=== PATIENT | male | born 1960 | race Caucasian/White ===

== ENCOUNTER → 2017-08-25 | Outpatient (CLI) | payer OTHER | LOC: BMCIMAGING 15:21 | PROVIDERS: ATTEND Family Medicine | DX: R05 Cough (principal); M79.1 Myalgia; R50.9 Fever, unspecified; R91.8 Other nonspecific abnormal finding of lung field ==

== ENCOUNTER 2017-08-27 15:22 | Observation (INO) | payer OTHER ==
[2017-08-27] MEDS ORDERED: NS 1,000 ML IV ONE ×2 (15:52→17:50)
--- NOTE | 2017-08-27 15:57 | EDPHY ---
HPI/HX/ROS/PE/MDM Narrative: CHIEF COMPLAINT: Pneumonia HPI: This patient is a 57 year old male with history of hypertension and recent diagnosis of lingular pneumonia. He presents as he has had considerable gastrointestinal upset since beginning antibiotic treatment and does not feel as though his symptoms are improving. On Saturday, the patient had a routine appointment with his PCP and was noted to be febrile. He has felt poorly since then and developed a cough on Saturday. He has been taking ibuprofen for relief of chills and fever and has felt fatigued. He visited an urgent care on Saturday and had a negative flu, but CXR was positive for pneumonia so he received a dose of IM ceftriaxone and has been taking amoxicillin. The patient has had recurrent vomiting and diarrhea since Saturday night after beginning antibiotics. Overall, he still feels poorly and states his cough has worsened. He endorses a "big blood clot" with coughing. He denies any blood in his emesis or stool. No melena. No dysuria or hematuria. REVIEW OF SYSTEMS: Aside from elements discussed in the HPI, a comprehensive 10-point review of systems was reviewed and is negative. PMH: Hypertension. Environmental allergies. History of asthma in childhood. SOCIAL HISTORY: . Family at bedside. Employed. PHYSICAL EXAM: General:Patient is alert, in no acute distress. ENT:Eyes are normal to inspection. ENT inspection normal. Neck: Normal inspection. Full range of motion. Respiratory:No respiratory distress. Breath sounds normal bilaterally. Cardiovascular: Regular rate and rhythm. Strong peripheral pulses. Normal cap refill. Abdomen:The abdomen is nontender to palpation. There are no peritoneal signs. There are normal bowel sounds. Back: Normal to inspection. No tenderness to palpation. Skin: Normal color. No rash. Warm and dry. Extremities: Normal appearance. Full range of motion. Neuro: Oriented x3. Normal motor function. Normal sensory function. ED Course: 57 y/o male with recent diagnosis of lingular pneumonia presents with vomiting and diarrhea after taking antibiotics. He is afebrile here in the emergency department at this time. I reviewed his chest x-ray results from 08/25/17. Patchy lingular infiltrate suspicious for pneumonia present at that time. Plan for repeat CXR. Plan for labs including troponin, coag panel, lactic acid, blood cultures. IV established. Plan to administer 1L IV NS. 16:20 Reviewed CXR. Persistent but stable peribronchial infiltrates. Radiologist report concurs. Reviewed laboratory reports. Lactic acid within normal limits. Troponin pending at this time. Plan for additional labs including CBC, chemistries. D-dimer elevated at 2.3. Plan for CTA chest to r/o PE or other acute processes given patient's history of hemoptysis and inconclusive x-ray. 18:[address] Paul, radiologist. CT chest shows patchy scattered pneumonia. Negative for PE. 19:17 Reassessed patient. He is hypoxic on room air. Plan to admit. 19:27 Spoke with hospitalist service. Dr. Arrieta accepts admission for pneumonia. MDM: This patient presents with fevers and a possible diagnosis of lingular infiltrate on CXR, currently treated with Augmentin. He does not endorse significant respiratory symptoms, and he describes hemoptysis that seems out of proportion to the possible pneumonia seen on CXR, which prompted a d-dimer and subsequent CTA. This revealed significant multi-lobar PNA that does not appear to be responding to Augmentin, which seems a sub-optimal choice for coverage. Given his hypoxia on RA, I think he requires admission for observation and IV antibiotics. - Data Points Imaging Results: Imaging Impressions Chest X-Ray 08/27/17 15:52 Impression: Persistent, but stable peribronchial infiltrates. Chest/Thorax CTA 08/27/17 17:59 Impression: Pneumonia. No evidence for pulmonary embolic disease. Results called and discussed with Vinh Inman MD, at 08/27/2017 18:55 General information for patients regarding this examination can be found at [email or web address]. If you have questions or comments about this report, please contact me at (hospital) or [phone] (cell). Imaging: Discussed imaging studies w/ operations recruiter Radiologist, I viewed and interpreted images myself Laboratory Results: Laboratory Results 08/27/17 16:02 08/27/17 16:02 08/27/17 08/27/17 08/27/17 16:02 16:02 16:02 WBC 10.15 10^3/uL H 10^3/uL (3.80-9.50) RBC 5.22 10^6/uL 10^6/uL (4.40-6.38) Hgb 16.9 g/dL g/dL (13.7-17.5) Hct 48.7 % % (40.0-51.0) MCV 93.3 fL fL (81.5-99.8) MCH 32.4 pg pg (27.9-34.1) MCHC 34.7 g/dL g/dL (32.4-36.7) RDW 13.3 % % (11.5-15.2) Plt Count 174 10^3/uL 10^3/uL (150-400) MPV 10.0 fL fL (8.7-11.7) Neut % (Auto) 75.0 % H % (39.3-74.2) Lymph % (Auto) 7.9 % L % (15.0-45.0) [place] % (Auto) 14.2 % H % (4.5-13.0) Eos % (Auto) 1.7 % % (0.6-7.6) Baso % (Auto) 0.6 % % (0.3-1.7) Nucleat RBC Rel Count 0.0 % % (0.0-0.2) Absolute Neuts (auto) 7.62 10^3/uL H 10^3/uL (1.70-6.50) Absolute Lymphs (auto) 0.80 10^3/uL L 10^3/uL (1.00-3.00) Absolute Monos (auto) 1.44 10^3/uL H 10^3/uL (0.30-0.80) Absolute Eos (auto) 0.17 10^3/uL 10^3/uL (0.03-0.40) Absolute Basos (auto) 0.06 10^3/uL 10^3/uL (0.02-0.10) Absolute Nucleated RBC 0.00 10^3/uL 10^3/uL (0-0.01) Immature Gran % 0.6 % % (0.0-1.1) Immature Gran # 0.06 10^3/uL 10^3/uL (0.00-0.10) PT INR D-Dimer 2.30 ug/mLFEU H ug/mLFEU (0.00-0.50) VBG Lactic Acid Sodium 138 mEq/L mEq/L (135-145) Potassium 3.8 mEq/L mEq/L (3.3-5.0) Chloride 103 mEq/L mEq/L (97-110) Carbon Dioxide 24 mEq/l mEq/l (22-31) Anion Gap 11 mEq/L mEq/L (8-16) BUN 17 mg/dL mg/dL (7-23) Creatinine 1.2 mg/dL mg/dL (0.7-1.3) Estimated GFR > 60 Glucose 98 mg/dL mg/dL (70-100) Calcium 8.6 mg/dL mg/dL (8.5-10.4) Troponin I 08/27/17 08/27/17 08/27/17 16:02 16:02 16:02 WBC RBC Hgb Hct MCV MCH MCHC RDW Plt Count MPV Neut % (Auto) Lymph % (Auto) [place] % (Auto) Eos % (Auto) Baso % (Auto) Nucleat RBC Rel Count Absolute Neuts (auto) Absolute Lymphs (auto) Absolute Monos (auto) Absolute Eos (auto) Absolute Basos (auto) Absolute Nucleated RBC Immature Gran % Immature Gran # PT 15.3 SEC H SEC (12.0-15.0) INR 1.19 H (0.83-1.16) D-Dimer VBG Lactic Acid 0.9 mmol/L mmol/L (0.7-2.1) Sodium Potassium Chloride Carbon Dioxide Anion Gap BUN Creatinine Estimated GFR Glucose Calcium Troponin I < 0.012 ng/mL ng/mL (0.000-0.034) Medications Given: Discontinued Medications Sodium Chloride (Ns) 1,000 mls @ 0 mls/hr IV ONCE ONE; Wide Open PRN Reason: Protocol Stop: 08/27/17 15:53 Last Admin: 08/27/17 16:03 Dose: 1,000 mls Sodium Chloride (Ns) 1,000 mls @ 0 mls/hr IV ONCE ONE PRN Reason: Wide Open Stop: 08/27/17 17:51 Last Admin: 08/27/17 18:13 Dose: 1,000 mls General Time Seen by Provider: 08/27/17 15:31 Initial Vital Signs: Initial Vital Signs Temperature (C) 37.3 C 08/27/17 15:23 Heart Rate 84 08/27/17 15:23 Respiratory Rate 20 08/27/17 15:23 Blood Pressure 129/93 H 08/27/17 15:23 O2 Sat (%) 92 08/27/17 15:23 O2 Delivery Mode Nasal Cannula O2 (L/minute) 3 Allergies/Adverse Reactions: aspirin Allergy (Verified 08/27/17 21:39) Other-Enter Comments Home Medications: Medication Instructions Recorded Amoxicillin/Clavulanate Pot 875 mg PO BID 08/27/17 [Augmentin 875 MG TAB (*)] Escitalopram Oxalate [Lexapro] 20 mg PO DAILY 08/27/17 Losartan Potassium [Cozaar 50 mg 50 mg PO DAILY 08/27/17 (*)] buPROPion SR [Wellbutrin 100mg SR 100 mg PO DAILY 08/27/17 (*)] Departure - Departure Disposition: [facility] Inpatient Acute Clinical Impression: Pneumonia Qualifiers: Pneumonia type: due to unspecified organism Laterality: bilateral Lung location : unspecified part of lung Qualified Code(s): J18.9 - Pneumonia, unspecified organism Condition: Fair Report Scribed for: Vinh Inman Report Scribed by: Hue Grande Date of Report: 08/27/17 Time of Report: 15:57 Physician Review and Approval Statement: Portions of this note were transcribed by an ED scribe. I personally performed the history, physical exam, and medical decision making; and confirm the accuracy of the information in the transcribed note.
[2017-08-27 16:23] LABS: INR 1.19 (0.83-1.16); PROTIME(PATIENT) 15.3 SEC (12.0-15.0)
[2017-08-27 17:01] LABS: PLATELET COUNT 174 10^3/uL (150-400)
[2017-08-27] MEDS ORDERED: IOPAMIDOL (ISOVUE 370) 100 ML BTL IV ONE (18:09)
[2017-08-27] MEDS ORDERED: IBUPROFEN 600 MG TAB PO ONE (21:30)
[2017-08-27] MEDS ORDERED: CALCIUM CARBONATE 500 MG CHEWABLE TAB PO PRN (21:58)
[2017-08-27] MEDS ORDERED: ONDANSETRON 4 MG/2 ML VIAL IVP PRN (22:00)
[2017-08-27] MEDS ORDERED: ZOLPIDEM TARTRATE 5 MG TAB PO PRN (22:01)
--- NOTE | 2017-08-27 22:18 | GHP ---
[f rep st] HISTORY AND PHYSICAL DATE OF ADMISSION: 08/27/2017 CHIEF COMPLAINT: Pneumonia. HISTORY OF PRESENT ILLNESS: This is a 57-year-old male who was diagnosed with pneumonia on Saturday at an urgent care. At that time, he was given a dose of Rocephin and started on Augmentin. Patient first became ill on Saturday with a cough and fevers. Since starting Augmentin on Saturday he de veloped some nausea and vomiting as well as diarrhea. The vomiting has since resolved, but he contin ues to have diarrhea. He also continues to have fever and nonproductive cough. Given that he has not been getting better, he called his doctor today who referred him to the emergen cy department for further evaluation given his persistent symptoms. The patient does have a history of hypertension and has not been taking his blood pressure meds for the past few days since he just d oes not want to take any more medications. PAST MEDICAL HISTORY: Hypertension, recently diagnosed pneumonia as mentioned in the HPI. PAST SURGICAL HISTORY: Eye surgery, spine surgery. HOME MEDICATIONS: Reviewed. Refer to [employer] for details. ALLERGIES: Aspirin; also Tylenol causes him to throw up. SOCIAL HISTORY: He lives in [place]. He is a former smoker. He denies any alcohol or illicit maldonado g use. FAMILY HISTORY: Reviewed and noncontributory. REVIEW OF SYSTEMS: Comprehensive 10-point review of systems was done and is negative, except for as mentioned in the HPI. PHYSICAL EXAM: VITAL SIGNS: Blood pressure 152/96, pulse of 75, respiratory rate 18, O2 saturation 92% on 2 L, temperature 38.7. GENERAL: No acute distress. HEAD: Normocephalic, atraumatic. EYES: PERRLA. Sclerae anicteric. MOUTH: Moist mucous membranes. NECK: Supple. No lymphadenopathy. CARDIOVASCULAR: S1, S2. No JVD. No lower extremity edema. PULMONARY: Diminished breath sounds in bilateral bases. No respiratory distress. ABDOMEN: Soft, nontender, nondistended. No guarding or rebound tenderness. Normoactive bowel sounds. EXTREMITIES: No clubbing or cyanosis. NEURO: Cran ial nerves 2-12 grossly intact. No focal motor or sensory deficits. SKIN: Clear. No rashes. DIAGNOSTICS: CTA of the chest, which I reviewed, was negative for PE, showed a left upper lobe and p osterior right upper lobe and patchy lower lobe infiltrates consistent with pneumonia. There is no P E. WBCs 10, hemoglobin 16.9, hematocrit 48.7, platelets 174. Venous lactic acid was 0.9, sodium 138 , potassium 3.8, chloride 103, BUN 17, creatinine 1.2, glucose 98. Troponin was negative. ASSESSMENT AND PLAN: This is a 57-year-old male presenting with: 1. Community-acquired pneumonia, initially diagnosed on Saturday, with persistent fever, diarrhea, and malaise. Plan: I suspect that the patient's GI symptoms are from the Augmentin which has been discontinued. He received a dose of IV levofloxacin in the emergency department, which will be continued for now. We will treat his symptoms supportively with ibuprofen since he does not tolerate Tylenol. We will a lso offer a cough suppressant as needed. We will send a viral respiratory pathogen panel by PCR. 1. History of hypertension, currently off the medications. 2. Plan: Resume home meds. Monitor blood pressure. /[id number]/MODL
[2017-08-28] MEDS: IBUPROFEN 600 MG TAB PO PRN ×2 (05:18→11:25)
[2017-08-28] MEDS ORDERED: BENZONATATE 100 MG CAP PO PRN (05:41)
[2017-08-28] MEDS ORDERED: ESCITALOPRAM OXALATE 10 MG TAB PO SCH (09:00)
[2017-08-28] MEDS ORDERED: guaiFENesin 600 MG TAB.ER PO SCH (09:00)
[2017-08-28] MEDS ORDERED: NON-FORMULARY NEW DRUG (Escitalopram Oxalate [Lexapro] 20 MG) PO SCH (09:00)
[2017-08-28] MEDS ORDERED: LOSARTAN POTASSIUM 50 MG TAB PO SCH (09:00)
[2017-08-28] MEDS ORDERED: buPROPion SR 100 MG TAB PO SCH (09:00)
--- NOTE | 2017-08-28 10:17 | ASMTCASEMG ---
Living Arrangements What is your living Answers: With Spouse arrangement? Who do you live with? Type Of Residence What kind of residence do Answers: House you live in? Discharge Plan Comments Coordination Status Comments Notes: Pt is a 57 y/o man admitted for pneumonia. Pt will most likely d/c home independent when medically stable. No therapies ordered at this time. CM available for changes. Plan: Independent Date Signed: 08/28/2017 10:17 AM Electronically Signed By:NUBIA Delgado
[2017-08-28 11:23] VITALS: BP 139/102
--- NOTE | 2017-08-28 18:02 | GDS ---
[f rep st] DISCHARGE SUMMARY DISCHARGE DIAGNOSES: Include: 1. Community-acquired pneumonia. 2. Diarrhea, thought related to antibiotics. 3. Acute leukocytosis, secondary to pneumonia. 4. Fever, secondary to pneumonia. HISTORY OF PRESENT ILLNESS: A 57-year-old male with history of hypertension who presents with persis tent symptoms of fevers, chills, cough, and shortness of breath. For details of the patient's initia l presentation, please see the history and physical dated 08/27/2017. CONSULTATIVE SERVICES: None. PROCEDURES: On 08/27/2017, patient underwent CT-A of the chest, which was negative for pulmonary emb olism. Patient was noted to have consolidations in the left upper lobe, right upper lobe, and patchy bilateral lower lobes. HOSPITAL COURSE: 1. Community-acquired pneumonia. [facility] have [facility], was evaluated in the outpatient setting, and initiated on Augmentin therapy. He did not tolerate this therapy well with nausea, vomiting, and diarrhea. Patient re-presented when his fevers and sym ptoms persisted. Patient was treated in the emergency department with IV levofloxacin. This was con tinued on the medical floor. Patient's fever defervesced overnight. He was feeling markedly improve d the morning after presentation and requesting returning home. We are sending him with oral levoflo xacin to complete a full 7-day course. Have asked that he follow in the outpatient setting with his PCP Dr. Schneider at the completion of his antibiotics for followup of resolution of symptoms. 2. Hypertension. He was continued on his home medications without change. MEDICATIONS AT THE TIME OF DISPOSITION: Please reference to the medication reconciliation printed on 08/28/2017. FOLLOWUP APPOINTMENTS: Include with Dr. Schneider in the next 1-2 weeks for post-disposition followup . PENDING STUDIES: At the time of this dictation, include blood cultures, which are preliminary no trina wth to date at the time of disposition. I spent greater than 30 minutes in the planning and coordination of this discharge. /[id number]/MODL
== END 2017-08-28 15:46 | disposition home or self-care (01) ==
LOC: F3E 20:23
PROVIDERS: ADMIT Family Medicine; ATTEND Hospitalist
DX: J18.9 Pneumonia, unspecified organism (principal); R19.7 Diarrhea, unspecified; E86.9 Volume depletion, unspecified; I10 Essential (primary) hypertension; Z87.891 Personal history of nicotine dependence; Z88.6 Allergy status to analgesic agent
CPT/HCPCS: 71046; 71275; 96361; 96365; 99285; G0378; J1956; Q9967